=== PATIENT | female | born 1960 | race Caucasian/White ===

== ENCOUNTER 2023-01-20 12:07 | Outpatient (CLI) | payer OTHER | END 2023-01-20 12:08 | disposition home or self-care (01) | LOC: CSHRAD 12:07 | PROVIDERS: ATTEND Physician Assistant Medical | DX: K58.1 Irritable bowel syndrome with constipation (principal); M25.551 Pain in right hip; M25.552 Pain in left hip; W19.XXXA Unspecified fall, initial encounter | CPT/HCPCS: 73521; 74019 ==

== ENCOUNTER 2023-02-03 13:01 | Outpatient (CLI) | payer OTHER | END 2023-02-03 13:02 | disposition home or self-care (01) | LOC: CSHRAD 13:01 | PROVIDERS: ATTEND Physician Assistant Medical | DX: K58.1 Irritable bowel syndrome with constipation (principal) | CPT/HCPCS: 74019 ==

== ENCOUNTER 2023-05-17 09:58 | Emergency (ER) | payer OTHER ==
[2023-05-17] MEDS ORDERED: Morphine 4 MG/ML VIAL ONE (10:32)
[2023-05-17] MEDS ORDERED: Dicyclomine 20 MG/2 ML VIAL ONE (10:32)
[2023-05-17] MEDS ORDERED: Ondansetron PF 4 MG/2 ML Vial ONE (10:32)
[2023-05-17 10:55] LABS: #Monocytes 0.3 10x3/uL (0.0-1.1); #Neutrophils 4.4 10x3/uL (1.5-8.4); %Basophils 0.5 % (0.0-2.0); %Eosinophils 0.5 % (0.0-6.0); %Lymphocytes 15.4 % (18.0-47.0); %Monocytes 4.8 % (0.0-10.0); %Neutrophils 78.6 % (40.0-75.0); Hemoglobin 12.9 g/dL (12.0-15.5); Mean Corpuscular HGB CONC 34.8 g/dL (32.0-36.0); Mean Corpuscular Hemoglobin 32.1 pg (27.0-33.0); Mean Corpuscular Volume 92.3 fl (81.6-98.3); Mean Platelet Volume 9.7 fl (7.4-10.4); Platelet Count 206 10x3/uL (150-450); RBC Distribution Width 11.3 % (11.5-14.5); Red Blood Cell (RBC) Count 4.02 10x6/uL (3.90-5.03); White Blood Cell (WBC) Count 5.6 10x3/uL (3.5-10.5)
[2023-05-17 11:06] LABS: Bilirubin Neg (Negative); Blood, Urine Negative (Negative); Clarity Clear (Clear); Glucose, Urine (Dipstick) Normal (Negative); Ketone, Urine 50 mg/dL (Negative); Leukocyte Negative (Negative); Nitrite Positive (Negative); Protein, Urine (Dipstick) Negative (Neg-Trace); Specific Gravity, Urine 1.005 (1.005-1.030); Urobilinogen Normal mg/dL (Less than 2)
[2023-05-17 11:09] LABS: ALT (SGPT) 14 U/L (8-55); AST (SGOT) 20 U/L (5-34); Albumin 4.3 g/dL (3.4-4.8); Alkaline Phosphatase 90 U/L (40-110); Anion Gap 16 mmol/L (10-20); BUN (Urea Nitrogen) 5 mg/dL (9.8-20.1); Bilirubin, Total 0.5 mg/dL (0.2-1.2); Calc. Creatinine Clearance 0 mL/min (70-130); Calcium 10.4 mg/dL (7.8-10.44); Carbon Dioxide 20 mmol/L (23-31); Chloride 103 mmol/L (98-107); Estimated GFR 98; Globulin 2.4 g/dL (2.4-3.5); Glucose 101 mg/dL (80-115); Lipase 30 U/L (8-78); Potassium 3.7 mmol/L (3.5-5.1); Protein, Total 6.7 g/dL (5.8-8.1); Sodium 135 mmol/L (136-145)
[2023-05-17 11:16] LABS: Bacteria/HPF Rare-Few HPF (None Seen); CAUTI Indications for Culture Pelvic or flank pain; RBC/HPF None Seen HPF (0-3); Squamous Epithelial 0-3 HPF (0-3); WBC/HPF None Seen HPF (0-3)
[2023-05-17 11:17] LABS: Urine Culture Reflex No No
[2023-05-17] MEDS ORDERED: Metoclopramide HCl 10 MG/2 ML VIAL ONE (12:25)
[2023-05-17] MEDS ORDERED: diphenhydrAMINE 50 MG/ML VIAL ONE (12:25)
[2023-05-17] MEDS ORDERED: Famotidine/PF 20 mg/2ml Vial ONE (12:26)
== END 2023-05-17 14:40 | disposition home or self-care (01) ==
LOC: CSHERS 09:58
DX: R10.13 Epigastric pain (principal); R11.2 Nausea with vomiting, unspecified; I10 Essential (primary) hypertension
CPT/HCPCS: 80053; 81001; 83605; 83690; 85025; 96361; 96372; 96374; 96375; J1200; J2270; J2405; J2765; S0028

== ENCOUNTER 2023-10-12 12:04 | Emergency (ER) | payer OTHER ==
[2023-10-12] MEDS ORDERED: Ketorolac Tromethamine 30 MG/ML VIAL ONE (13:40)
== END 2023-10-12 14:10 | disposition home or self-care (01) ==
LOC: CSHERS 12:04
DX: F41.1 Generalized anxiety disorder (principal); N39.0 Urinary tract infection, site not specified; I10 Essential (primary) hypertension
CPT/HCPCS: 36416; 96374; J1885